=== PATIENT | female | born 1985 | race Caucasian/White ===

== ENCOUNTER 2024-07-07 16:56 | Emergency (ER) | payer BC, SELFPAY ==
[2024-07-07 17:19] VITALS: BP 151/85; PULSE 81; RESP 16; TEMP 36.4; O2SAT 97; BMI 36.9
--- NOTE | 2024-07-07 18:51 | PC.NURSE ---
Patient transferred to [facility].
[2024-07-07 18:56] VITALS: BP 135/82; PULSE 76; RESP 18; TEMP 36.5; O2SAT 98
[2024-07-07] MEDS: ketorolac 60 mg/2 mL INJ IM (19:11)
--- NOTE | 2024-07-07 19:17 | W.ED.BACK ---
HPI - Back Pain/Injury General: Chief Complaint: Back Pain/Injury Stated Complaint: bacl pain Time Seen by Provider: 07/07/24 18:56 Source: patient Limitations: no limitations History of Present Illness: 38-year-old female presents to the ED with worsening low back pain and associated radicular symptoms. Patient reports chronic back pain history but notes today's pain is significantly worse. She describes radiating pain down the right leg to the knee, and reports her left leg feels 'heavy.' Symptoms began gradually while at work, progressively worsening throughout the day to the point where she could no longer tolerate the pain. Pain is exacerbated by bending, twisting, and turning movements. Patient works at [employer] and reports minimal lifting today (only a 2-gallon pickle bucket once). She has a history of bone spurs and arthritis in her spine, last evaluated 3-4 years ago. Recently completed a course of oral steroids for back pain with minimal improvement compared to previous steroid treatments. Patient denies urinary symptoms or saddle anesthesia. MD elicited complaint: back pain Related Data Home Medications ?Medication ?Instructions ?Recorded ?Confirmed bisoprolol fumarate 10 mg tablet mg PO BID 06/12/24 06/12/24 Previous Rx's ?Medication ?Instructions ?Recorded cyclobenzaprine 10 mg tablet 10 mg PO TID PRN muscle spasm #30 06/12/24 tabs prednisone 20 mg tablet 40 mg (2 x 20 mg) PO DAILY 5 days 06/12/24 #10 tabs cyclobenzaprine 10 mg tablet 10 mg PO BID PRN muscle spasm #20 07/07/24 tabs naproxen 500 mg tablet,delayed 500 mg PO BID PRN pain #20 tabs 07/07/24 release Allergies Allergy/AdvReac Type Severity Reaction Status Date / Time codeine Allergy gi issues Verified 07/07/24 17:25 promethazine (From Phenergan) Allergy leg spasms. Verified 07/07/24 17:25 Sulfa (Sulfonamide Allergy hives Verified 07/07/24 17:25 Antibiotics) PFS ED PFSH: Medical History (Updated 07/07/24 @ 19:19 by Margarito Negron MD) POTS (postural orthostatic tachycardia syndrome) Social History Smoking and tobacco/nicotine status: never used tobacco/nicotine Physical Exam Const: COMMON NORMALS: no acute distress and alert GENERAL APPEARANCE: cooperative ORIENTATION/CONSCIOUSNESS: Yes awake HENMT: COMMON NORMALS: normocephalic and atraumatic HEAD & SCALP: normocephalic and atraumatic Eye: COMMON NORMALS: conjunctivae normal CONJUNCTIVA: Yes conjunctivae normal Neck/C-Spine: GENERAL: Yes normal visual inspection Resp: COMMON NORMALS: normal respiratory effort, No retractions and No use of accessory muscles Cardio: COMMON NORMALS: regular rhythm and Peripheral pulses 2+ throughout RHYTHM: regular rhythm PERIPHERAL PULSES: Peripheral pulses 2+ throughout GI: COMMON NORMALS: Soft to palpation and non-tender PALPATION: Yes Soft to palpation Extremity: COMMON NORMALS: full ROM and no pedal edema Neuro: COMMON NORMALS: no focal motor deficits SENSORIUM/ORIENTATION: Yes alert Skin: COMMON NORMALS: no rashes or lesions noted GENERAL SKIN EXAM: no rashes or lesions noted Course Vital Signs: Vital signs: Vital Signs Temperature 97.7 F 07/07/24 18:56 Pulse Rate 76 07/07/24 18:56 Respiratory Rate 18 07/07/24 18:56 Blood Pressure 135/82 07/07/24 18:56 Pulse Oximetry 98 07/07/24 18:56 Oxygen Delivery Me thod Room Air 07/07/24 18:56 MDM - Back Pain/Injury Medical Decision Making Review of Systems: Constitutional: Denies fever Musculoskeletal: Positive for back pain and radicular symptoms Neurological: Reports left leg heaviness, normal sensation in perineal area Genitourinary: Denies difficulty urinating Respiratory: No shortness of breath Medications: Bisoprolol for POTS syndrome Cyclobenzaprine (has at home) Recent course of prednisone Allergies: No known allergies Past Medical History: POTS syndrome Chronic back pain Spinal bone spurs Spinal arthritis Past Surgical History: Right hip replacement approximately 1 year ago Social History: Works at [employer] Employment involves some lifting Family History: No relevant family history documented Vital Signs: Blood Pressure: 135/82 mmHg Pulse: 76 bpm Respiratory Rate: 18/min Temperature: 97.7?F O2 Saturation: 98% on room air Physical Exam: General: Patient is awake, alert, well-appearing, obese female in no acute distress Cardiovascular: Equal pulses in all four extremities Respiratory: Lungs clear to auscultation Musculoskeletal: Mild and diffuse tenderness along paraspinous and left lumbar region Neurological: - Strength 5/5 in bilateral lower extremities - Patellar reflexes 2+ bilaterally - Normal sensation in perineal area Lab Results: Blood glucose noted but value not specified Imaging and Other Relevant Results: Previous MRI of lumbar spine approximately 3 years ago, results not available Medical Decision Making: Summary Statement: 38-year-old female with history of chronic back pain presents with acute exacerbation of low back pain and new bilateral leg symptoms, concerning for possible radiculopathy. Problem List: 1. Acute on chronic low back pain, 2. Bilateral lower extremity radicular symptoms, 3. POTS syndrome Differential Diagnosis: Lumbar radiculopathy, musculoskeletal strain, spinal stenosis, disc herniation, facet arthropathy ED Course: Patient received Toradol 60mg IM for pain management. No red flag symptoms identified. Patient appropriate for outpatient management. Assessment and Plan: 1. Acute on chronic low back pain with radicular symptoms: - Administered Toradol 60mg IM in ED - Prescribed naproxen and cyclobenzaprine for outpatient use - Recommended ice/heat therapy as tolerated - Follow up with PCP for: * Physical therapy referral * Consider updated MRI given worsening symptoms - Return to ED for worsening symptoms or development of red flag symptoms No radiology studies performed this visit Discharge Plan Discharge Patient Disposition: Home Clinical Impression: Lumbar back pain Condition: Stable Prescriptions: New naproxen 500 mg tablet,delayed release (DR/EC) 500 mg PO BID PRN (Reason: pain) Qty: 20 0RF cyclobenzaprine 10 mg tablet 10 mg PO BID PRN (Reason: muscle spasm) Qty: 20 0RF No Action bisoprolol fumarate 10 mg tablet PO BID cyclobenzaprine 10 mg tablet 10 mg PO TID PRN (Reason: muscle spasm) Qty: 30 0RF prednisone 20 mg tablet 40 mg PO DAILY 5 Days Qty: 10 0RF Discharge Orders: Discharge ED (Routine); Ordered 07/07/24 Ordered By: Margarito Negron Referrals: Alana Kinney NP [Primary Care Provider, Family Practice] Discharge Activity: Increase activity as tolerated Patient Instructions: Low Back Strain (ED), Back Pain (ED), Lower Back Exercises (ED), Pain Management Activity Restrictions/Additional Instructions: Take all medication as directed. Follow-up with your primary care provider for recheck and discussion of physical therapy referral and an outpatient MRI of the lumbar spine. Return to the ER for increasing low back pain, weakness of your lower extremities, urinary incontinence or inability to urinate, or any other concerns Print Language: New Zealander Coding Level of Care Code ED Felt Carbon[employer] for Justin Bueno
[2024-07-07 19:24] VITALS: BP 149/87; PULSE 66; O2SAT 98
== END 2024-07-07 19:27 | disposition home or self-care (01) ==
PROVIDERS: Emergency Provider Student in an Organized Health Care Education/Training Program; PCP Nurse Practitioner Family
DX: M54.50 Low back pain, unspecified (principal)
CPT/HCPCS: 96372; 99284; J1885

== ENCOUNTER 2024-07-08 12:37 | Outpatient (CLI) | payer BC, SELFPAY ==
--- NOTE | 2024-07-08 12:48 | XR_ITS ---
WS: [id number] XR thoracic spine 3V* [id number] REASON FOR EXAM: M54.50 - Low back pain, unspecified FINDINGS: No significant scoliosis. Moderate kyphosis. No significant vertebral body compression deformity or focal lesion. Mild narrowing of the intervertebral disc spaces with moderate endplate sclerosis throughout the thoracic spine. Anterior bridging flowing osteophyte formation from T6-L2. XR/XR thoracic spine 3V* [id number] IMPRESSION: Degenerative spondylosis which is rather severe for the patient's age.
--- NOTE | 2024-07-08 12:48 | XR_ITS ---
WS: [id number] XR lumbar spine 2-3V* [id number] REASON FOR EXAM: M54.50 - Low back pain, unspecified FINDINGS: Mild rotatory levoscoliosis. Exaggerated lordosis. No significant compression deformity or vertebral body lesion. Mild narrowing of the T12-L1 disc space with mild endplate sclerosis and significant osteophytosis. Similar abnormality at L1-L2. The remainder of the disc spaces are relatively well-preserved. Mild vertebral body osteophytosis L3-L5. Minimal anterolisthesis of L3 in relation to L2 and L4 in relation to L3. No spondylolysis. XR/XR lumbar spine 2-3V* [id number] IMPRESSION: Degenerative spondylosis as above.
== END 2024-07-08 12:38 | disposition home or self-care (01) ==
PROVIDERS: PCP Nurse Practitioner Family; Visit Provider Nurse Practitioner Family
DX: M47.894 Other spondylosis, thoracic region (principal); M47.896 Other spondylosis, lumbar region; R93.7 Abnormal findings on diagnostic imaging of other parts of musculoskeletal system; M51.34 Other intervertebral disc degeneration, thoracic region; M25.78 Osteophyte, vertebrae; M41.86 Other forms of scoliosis, lumbar region; M51.35 Other intervertebral disc degeneration, thoracolumbar region; M51.369 Other intervertebral disc degeneration, lumbar region without mention of lumbar back pain or lower extremity pain
CPT/HCPCS: 72072; 72100

== ENCOUNTER → 2024-07-29 09:47 | Outpatient (BNVA) | payer BC, SELFPAY | PROVIDERS: PCP Nurse Practitioner Family; Visit Provider Orthopaedic Surgery | DX: M54.50 Low back pain, unspecified (principal); G89.29 Other chronic pain | CPT/HCPCS: 72110 ==

== ENCOUNTER 2024-08-06 08:18 | Outpatient (CLI) | payer BC, SELFPAY ==
--- NOTE | 2024-08-06 08:45 | MR_ITS ---
WS: [id number] MRI LUMBAR SPINE NONCONTRAST HISTORY: back pain, pain down RIGHT leg. COMPARISON: 07/29/2024 radiograph. TECHNIQUE: Sagittal and axial multisequence imaging is submitted. Moderate increase in thoracic kyphosis. Hypertrophic osteophytes in the midthoracic spine. Moderate increase in lumbar lordosis. Moderate disc space narrowing at L1-2. Large anterior bridging clawlike osteophyte. There is a small amount of edema in the anterior inferior L1 vertebral body. Edema is close to the base of the osteophyte. Conus terminates normally at L1-2 disc level. L1-L2: Small amount of fluid in the RIGHT facet joint. L2-L3: Mild bilateral foraminal stenosis, LEFT greater than RIGHT. There is contact on the exiting LEFT L2 nerve root by facet disease. L3-L4: Mild ligamentum flavum and facet disease. Mild bilateral foraminal stenosis, LEFT greater than RIGHT. L4-L5: Diffuse annular disc bulging encroaching upon the subarticular recesses and ventral thecal sac. Thecal sac is being deformed greatest on the LEFT. Moderate ligamentum flavum and facet arthritis. Mild bilateral foraminal stenosis, LEFT greater than RIGHT. Mild central and subarticular recess sten osis. L5-S1: Mild bilateral facet joint arthritis. Minimal foraminal stenosis. Paravertebral soft tissues are negative. MR/MR lumbar spine wo con* [id number] IMPRESSION: 1. Moderate increase in lumbar lordosis. 2. Degenerative disc disease at L1-2 with a large anterior bridging osteophyte . 3. L2-3: Mild bilateral foraminal stenosis, LEFT greater than RIGHT. There is contact on the exiting LEFT L2 nerve root by facet disease. 4. Mild bilateral foraminal stenosis at L3-4, L4-5 and L5-S1. Additional mild central and subarticular recess stenosis at L4-5.
== END 2024-08-06 08:19 | disposition home or self-care (01) ==
PROVIDERS: PCP Nurse Practitioner Family; Visit Provider Orthopaedic Surgery
DX: M48.061 Spinal stenosis, lumbar region without neurogenic claudication (principal); R93.7 Abnormal findings on diagnostic imaging of other parts of musculoskeletal system; M51.369 Other intervertebral disc degeneration, lumbar region without mention of lumbar back pain or lower extremity pain; M25.78 Osteophyte, vertebrae; M48.07 Spinal stenosis, lumbosacral region; M40.294 Other kyphosis, thoracic region; M47.896 Other spondylosis, lumbar region; M24.28 Disorder of ligament, vertebrae; M47.897 Other spondylosis, lumbosacral region
CPT/HCPCS: 72148

== ENCOUNTER → 2024-12-11 09:51 | Outpatient (BNVA) | payer BC, SELFPAY | PROVIDERS: PCP Nurse Practitioner Family; Visit Provider Nurse Practitioner Family | DX: R55 Syncope and collapse (principal); R11.0 Nausea; R50.9 Fever, unspecified | CPT/HCPCS: 80053; 83036; 84443; 85025; 87400; 87426 ==

== ENCOUNTER → 2025-03-03 09:12 | Outpatient (BNVA) | payer BC, SELFPAY | PROVIDERS: PCP Nurse Practitioner Family; Visit Provider Nurse Practitioner Family | DX: R50.9 Fever, unspecified (principal) | CPT/HCPCS: 87400; 87426 ==